=== PATIENT | male | born 1975 | race Caucasian/White ===

== ENCOUNTER 2023-02-16 09:14 | Outpatient (CLI) | payer OTHER | END 2023-02-16 23:59 | disposition home or self-care (01) | LOC: WOU 09:14 | PROVIDERS: ATTEND Specialist | DX: Z01.818 Encounter for other preprocedural examination (principal); N30.40 Irradiation cystitis without hematuria; C61 Malignant neoplasm of prostate; L59.9 Disorder of the skin and subcutaneous tissue related to radiation, unspecified; Z79.01 Long term (current) use of anticoagulants; I82.432 Acute embolism and thrombosis of left popliteal vein | CPT/HCPCS: G0463 ==

== ENCOUNTER 2023-02-21 13:41 | Outpatient (CLI) | payer OTHER | END 2023-02-21 23:59 | disposition home or self-care (01) | LOC: RAD 13:41 | PROVIDERS: ATTEND Specialist | DX: R05.9 Cough, unspecified (principal) | CPT/HCPCS: 71046 ==